=== PATIENT | female | born 1955 | race Caucasian/White ===

== ENCOUNTER 2017-07-24 13:51 | Emergency (ER) | payer OTHER ==
[2017-07-24] MEDS: SOD CHLORIDE 0.9% 500 ML IV (18:16)
[2017-07-24] MEDS: ASPIRIN 325 MG TAB PO (18:18)
[2017-07-24] MEDS: morphine 4 MG/ML VIAL IV (18:18)
[2017-07-24 18:21] LABS: ADD MAN DIFF? NO
[2017-07-24 18:23] LABS: BASOPHILS % 0.4 % (0.0-2.0); EOSINOPHILS # 0.2 10^3/ul (0.0-0.5); EOSINOPHILS % 1.7 % (0.0-7.0); HEMATOCRIT 36.9 % (37.0-47.0); HEMOGLOBIN 12.4 g/dl (12.0-16.0); LYMPHOCYTES % 21.2 % (15.0-51.0); MEAN CORPUSCULAR HEMOGLOBIN 29.1 pg (29.0-33.0); MEAN CORPUSCULAR HGB CONC 33.6 g/dl (32.0-37.0); MEAN CORPUSCULAR VOLUME 86.6 fl (82.0-101.0); MEAN PLATELET VOLUME 9.9 fl (7.4-10.4); MONOCYTE # 0.5 10^3/ul (0.3-0.9); MONOCYTES % 5.3 % (0.0-11.0); NEUTROPHIL # 6.8 10^3/ul (1.6-7.5); NEUTROPHILS % 71.1 % (39.0-77.0); PLATELET COUNT 259 10^3/UL (140-415); RED BLOOD COUNT 4.26 10^6/ul (4.20-5.40)
[2017-07-24 18:23] LABS: WHITE BLOOD COUNT 9.5 10^3/ul (4.8-10.8)
[2017-07-24 18:41] LABS: ANION GAP 18 (8-16); BLOOD UREA NITROGEN 18 mg/dl (7-20); CALCIUM 9.5 mg/dl (8.4-10.2); CARBON DIOXIDE 30 mmol/L (21-31); CHLORIDE 100 mmol/L (97-110); CREATININE 0.87 mg/dl (0.44-1.00); GLUCOSE 101 mg/dl (70-220); POTASSIUM 4.1 mmol/L (3.5-5.1); SODIUM 144 mmol/L (135-144)
[2017-07-24] MEDS: LABETALOL HCL 20MG INJ IV (18:55)
[2017-07-24 18:59] LABS: INR 0.96; PARTIAL THROMBOPLASTIN TIME 30.1 Sec (25.0-35.0); PROTIME 12.9 Sec (11.9-14.9); TROPONIN-I < 0.012 ng/ml (0.00-0.12)
[2017-07-24] MEDS: KETOROLAC 30 MG INJ IV (20:04)
[2017-07-24] MEDS: ACETAMINOPHEN 500 MG TAB PO (21:40)
[2017-07-24 21:41] LABS: CREATINE KINASE 72 IU/L (23-200)
[2017-07-24] MEDS: OXYCODONE/ACETAMINOPHEN (5/325) TAB PO (22:34)
== END 2017-07-24 23:38 | disposition home or self-care (01) ==
LOC: E/R 13:51
DX: M79.604 Pain in right leg (principal); I10 Essential (primary) hypertension; Z85.3 Personal history of malignant neoplasm of breast
CPT/HCPCS: 80048; 82550; 84484; 85025; 85610; 85730; 93005; 93971; 96374; 96375; 99291-25